=== PATIENT | female | born 1990 | race Caucasian/White ===

== ENCOUNTER 2016-09-02 17:08 | Emergency (ER) | payer MEDICAID ==
[~2016-09-02] VITALS: Ht 162.6 cm; Wt 109.1 kg
[~2016-09-02 17:08] MED LIST: DENIES MEDS
[2016-09-02 17:54] VITALS: Ht 162.6 cm; Wt 109.1 kg
--- NOTE | 2016-09-02 19:34 | ERD ---
ER Documentation Chief Complaint Date/Time DATE: 09/02/16 TIME: 19:32 Chief Complaint heavy vaginal bleeding with clots; lower abdominal pain HPI This is a 26-year-old female who presents to the emergency department today for heavy vaginal bleeding. Patient states that she started her period last night and this morning she had heavy clots and she felt dizzy while in the shower. Patient states that she has sharp pain in her stomach. States that for the last year she has been having heavy vaginal bleeding and is sometimes getting her period twice a month. Denies any fevers or chills. States she has some nausea but no vomiting. Denies being sexually active. ROS All systems reviewed and are negative except as per history of present illness. Medications Home Meds Active Scripts Acetaminophen* (Tylophen*) 500 Mg Capsule, 1 CAP PO Q6H Y for PAIN AND OR ELEVATED TEMP, #30 CAP Prov:VICKIE WRIGHT PA-C 09/02/16 Naproxen* (Naprosyn*) 500 Mg Tablet, 500 MG PO BID Y for PAIN AND/OR INFLAMMATION, #30 TAB Prov:VICKIE WRIGHT PA-C 09/02/16 Docusate Sodium* (Colace*) 100 Mg Capsule, 100 MG PO TID, #60 CAP Prov:VICKIE WRIGHT PA-C 09/02/16 Ferrous Sulfate* (Ferrous Sulfate*) 325 Mg Tabec, 325 MG PO BID for 30 Days, TAB Prov:VICKIE WRIGHT PA-C 09/02/16 Reported Medications [Denies Meds] No Conflict Check 07/18/10 Allergies Allergies: Coded Allergies: No Known Drug Allergy (Verified Allergy, Mild, 07/18/10) PMhx/Soc History of Surgery: No Anesthesia Reaction: No Hx Neurological Disorder: No Hx Respiratory Disorders: No Hx Cardiac Disorders: No Hx Psychiatric Problems: No Hx Miscellaneous Medical Probl: No Hx Alcohol Use: No Hx Substance Use: No Hx Tobacco Use: No Physical Exam Vitals Vital Signs Date Time Temp Pulse Resp B/P Pulse Ox O2 Delivery O2 Flow Rate FiO2 09/02/16 17:54 97.9 73 19 134/70 100 Physical Exam Const: Obese, talkative, no acute distress Head: Atraumatic Eyes: Normal Conjunctiva ENT: Normal External Ears, Nose and Mouth. Neck: Full range of motion..~ No meningismus. Resp: Clear to auscultation bilaterally Cardio: Regular rate and rhythm, no murmurs Abd: Soft, mild suprapubic tenderness non distended. Normal bowel sounds. No right lower quadrant pain. No tenderness at McBurney's. No left lower quadrant pain Skin: No petechiae or rashes Neur: Awake and alert Psych: Normal Mood and Affect Result Diagram: 09/02/16201409/02/162014 Results 24 hrs Laboratory Tests Test 09/02/16 19:45 09/02/16 20:15 Bedside Urine Blood 3+ Bedside Urine Glucose (UA) Negative Bedside Urine Ketones (LAB) Negative Bedside Urine Leukocyte Esterase (L Trace Bedside Urine Nitrite (LAB) Negative Bedside Urine Protein (LAB) Negative Bedside Urine pH (LAB) 6.0 Alanine Aminotransferase (ALT/SGPT) 65IU/L Albumin 4.3g/dl Albumin/Globulin Ratio 1.16 Alkaline Phosphatase 95IU/L Anion Gap 17 Aspartate Amino Transf (AST/SGOT) 60IU/L Basophils # 0.010^3/ul Basophils % 0.4% Blood Urea Nitrogen 7mg/dl Calcium Level 9.1mg/dl Carbon Dioxide Level 26mmol/L Chloride Level 104mmol/L Creatinine 0.61mg/dl Direct Bilirubin 0.00mg/dl Eosinophils # 0.110^3/ul Eosinophils % 0.7% Globulin 3.70g/dl Glucose Level 107mg/dl Hematocrit 32.0% Hemoglobin 10.0g/dl Indirect Bilirubin 0.2mg/dl Lymphocytes # 1.910^3/ul Lymphocytes % 21.2% Mean Corpuscular Hemoglobin 25.4pg Mean Corpuscular Hemoglobin Concent 31.3g/dl Mean Corpuscular Volume 81.2fl Mean Platelet Volume 9.8fl Monocytes # 0.510^3/ul Monocytes % 5.9% Neutrophils # 6.410^3/ul Neutrophils % 71.6% Nucleated Red Blood Cells # 0.010^3/ul Nucleated Red Blood Cells % 0.0/100WBC Platelet Count 34012^3/UL Potassium Level 4.2mmol/L Red Blood Count 3.9410^6/ul Red Cell Distribution Width 15.0% Sodium Level 143mmol/L Total Bilirubin 0.2mg/dl Total Protein 8.0g/dl White Blood Count 9.010^3/ul DIAGNOSTIC IMAGING REPORT Patient: GEM LA : 1990 Age: 26 Sex: F MR #: [id number] DOS: 09/02/16 0000 Ordering MD: VICKIE WRIGHT PA-C Location: [facility] Room/Bed: PROCEDURE: Ultrasound pelvis CLINICAL INDICATION: heavy vaginal bleeding, pain.. TECHNIQUE: Multiple valencia scale and color Doppler images of the pelvis were obtained transabdominally and transvaginally. Images were reviewed PACS workstation COMPARISON: None FINDINGS: The uterus is identified, measuring 8.9 x 5.5 x 6.2 cm. The endometrial canal appears thickened, measuring up to 3.4 cm. There is internal vascularity. The right ovary measures 4.3 x 2.4 x 2.8 cm. The left ovary measures 4.2 x 2.9 x 2.2 cm. The ovaries appear unremarkable in echotexture. There is bilateral vascular flow identified. There is no evidence of free fluid. There is no abnormal adnexal mass. IMPRESSION: 1. Heterogeneous thickened endometrium, 3.3 cm, with internal vascularity. This is suspicious for underlying hyperplasia, polyp, or mass. Direct visualization or hysterosonogram recommended. 2. Unremarkable appearance of the bilateral ovaries. RPTAT: HBST . .Duglas Euceda MD, MD Date Time Electronically viewed and signed by .Duglas Euceda MD, MD on 09/02/2016 21:52 .T/ CC: VICKIE WRIGHT PA-C Procedures/[facility] This a 26-year-old female who presents to the emergency department today for heavy vaginal bleeding that started last night. Patient has been having a history of heavy vaginal bleeding and dysfunctional uterine bleeding. I did obtain laboratory work as well as a UA and ultrasound UA shows trace leukocyte esterase Urine test is negative Laboratory work shows hemoglobin of 10 and hematocrit of 32. Platelets are within normal limits. Electrolytes are within normal limits. Glucose is within normal limits. Liver function is mildly elevated. Ultrasound shows heterogeneous thickened endometrium 3.3 cm with internal vascularity. This is suspicious for underlying hyperplasia, polyp or mass. Direct visualization or his stroke sonogram is recommended. Unremarkable appearance of the bilateral ovaries. There is no abnormal adnexal mass. There is no evidence of free fluid. There is bilateral vascular flow identified. Patient symptoms at this time most consistent with dysfunctional uterine bleeding however patient does have an abnormal ultrasound. I have discussed this with the patient. Patient indicated that her aunts has a history of female cancer however she is unsure which one. At this time low suspicion for ectopic , tubo-ovarian abscess, ovarian torsion.. Patient is not hypotensive. She is hemodynamically stable. There is no indication for transfusion at this time. Patient was instructed she needed to get follow-up with a ASSISTED LIVING ASSISTANT as soon as possible. Patient understood Patient was given a prescription for Naprosyn, Tylenol, iron and Colace At this time the patient is stable for discharge and outpatient management. Patient should follow up with their PCP in the next 1-2 days. They may return to the emergency department sooner for any persistent or worsening of symptoms. Patient understood and agreed with the plan. Discussed the patient with Dr. Mullen and he is in agreement with the plan. Departure Diagnosis: Primary Impression: Vaginal bleeding Condition: VICKIE Ramesh PA-C Sep 02, 2016 19:34
[2016-09-02 19:47] LABS: URINE BLOOD (Dip) POC 3+ (NEGATIVE)
[2016-09-02 20:19] LABS: ADD SCAN DIFF NO
[2016-09-02 20:22] LABS: BASOPHILS % 0.4 % (0.0-2.0); EOSINOPHILS # 0.1 10^3/ul (0.0-0.5); EOSINOPHILS % 0.7 % (0.0-7.0); LYMPHOCYTES # 1.9 10^3/ul (0.8-2.9); LYMPHOCYTES % 21.2 % (15.0-51.0); MEAN CORPUSCULAR HEMOGLOBIN 25.4 pg (29.0-33.0); MEAN CORPUSCULAR HGB CONC 31.3 g/dl (32.0-37.0); MEAN CORPUSCULAR VOLUME 81.2 fl (82.0-101.0); MEAN PLATELET VOLUME 9.8 fl (7.4-10.4); MONOCYTE # 0.5 10^3/ul (0.3-0.9); MONOCYTES % 5.9 % (0.0-11.0); NEUTROPHIL # 6.4 10^3/ul (1.6-7.5); NEUTROPHILS % 71.6 % (39.0-77.0); PLATELET COUNT 403 10^3/UL (140-415); RED BLOOD COUNT 3.94 10^6/ul (4.20-5.40)
[2016-09-02 20:39] LABS: ALBUMIN 4.3 g/dl (3.3-4.9)
[2016-09-02 20:40] LABS: POTASSIUM 4.2 mmol/L (3.5-5.1)
[2016-09-02 20:42] LABS: ALBUMIN/GLOBULIN RATIO 1.16; BILIRUBIN,INDIRECT 0.2 mg/dl (0-1.1); BILIRUBIN,TOTAL 0.2 mg/dl (0.2-1.3); CREATININE 0.61 mg/dl (0.44-1.00)
[2016-09-02 20:43] LABS: CALCIUM 9.1 mg/dl (8.4-10.2)
--- NOTE | 2016-09-02 21:52 | RADRPT ---
PROCEDURE: Ultrasound pelvis CLINICAL INDICATION: heavy vaginal bleeding, pain.. TECHNIQUE: Multiple valencia scale and color Doppler images of the pelvis were obtained transabdominal ly and transvaginally. Images were reviewed PACS workstation COMPARISON: None FINDINGS: The uterus is identified, measuring 8.9 x 5.5 x 6.2 cm. The endometrial canal appears thickened, me asuring up to 3.4 cm. There is internal vascularity. The right ovary measures 4.3 x 2.4 x 2.8 cm. The left ovary measures 4.2 x 2.9 x 2.2 cm. The ovari es appear unremarkable in echotexture. There is bilateral vascular flow identified. There is no evidence of free fluid. There is no abnormal adnexal mass. IMPRESSION: 1. Heterogeneous thickened endometrium, 3.3 cm, with internal vascularity. This is suspicious for underlying hyperplasia, polyp, or mass. Direct visualization or hysterosonogram recommended. 2. Unremarkable appearance of the bilateral ovaries. RPTAT: HBST . .Duglas Euceda MD, MD Date Time Electronically viewed and signed by .Duglas Euceda MD, on 09/02/2016 21:52 .T/
[2016-09-02 22:10] VITALS: BP 128/68; PULSE 74; RESP 16; TEMP 98.4
[2016-09-02] MEDS ORDERED: DOCU-144 PO (22:15)
[2016-09-02] MEDS ORDERED: FER325 PO (22:15)
[2016-09-02] MEDS ORDERED: NAPR-260 PO (22:16)
[2016-09-02] MEDS ORDERED: ACET500C5 PO (22:16)
== END 2016-09-02 22:14 | disposition home or self-care (01) ==
LOC: FTE 17:08
DX: N93.9 Abnormal uterine and vaginal bleeding, unspecified (principal); R10.2 Pelvic and perineal pain
CPT/HCPCS: 76856; 80053; 81003; 85025; Z7502

== ENCOUNTER 2017-01-25 21:37 | Emergency (ER) | payer MEDICAID, OTHER ==
[~2017-01-25] VITALS: Ht 162.6 cm; Wt 113.0 kg
[~2017-01-25 21:37] MED LIST changes: +ACET500C5 PO; +DOCU-144 PO; +FER325 PO; +NAPR-260 PO
[2017-01-25 21:49] VITALS: Ht 162.6 cm; Wt 113.0 kg
[2017-01-25] MEDS ORDERED: LIDOCAINE 2%/EPI MPF (SDV) 20 ML VIAL INJ ONE (23:30)
[2017-01-25] MEDS ORDERED: HYDROCODONE/APAP (5/325) TAB PO ONE (23:30)
[2017-01-26] MEDS ORDERED: HYDR-906 PO (00:26)
[2017-01-26] MEDS ORDERED: DIPHTH/TET/ACEL PERTUSS (ADULT) 0.5 ML VIAL IM* ONE (00:30)
--- NOTE | 2017-01-26 00:38 | ERA ---
ER Documentation Chief Complaint Date/Time DATE: 01/26/17 TIME: 00:35 Chief Complaint right leg laceration HPI 26-year-old female presenting 12 hours after right leg laceration from glass. Clean laceration. Denies any possibility of foreign bodies. Tetanus status is unknown. Denies numbness, tingling, decreased/loss of motion, or injury to other areas. Nursing notes have been reviewed and are consistent with history given. ROS All systems reviewed and are negative except as per history of present illness. Medications Home Meds Active Scripts Hydrocodone/Acetaminophen (Conway 5-325 Tablet) 1 Each Tablet, 1 TAB PO Q6H Y for PAIN, #7 TAB Prov:VEENA DORADO PA-C 01/26/17 Acetaminophen* (Tylophen*) 500 Mg Capsule, 1 CAP PO Q6H Y for PAIN AND OR ELEVATED TEMP, #30 CAP Prov:VICKIE WRIGHT PA-C 09/02/16 Naproxen* (Naprosyn*) 500 Mg Tablet, 500 MG PO BID Y for PAIN AND/OR INFLAMMATION, #30 TAB Prov:VICKIE WRIGHT PA-C 09/02/16 Docusate Sodium* (Colace*) 100 Mg Capsule, 100 MG PO TID, #60 CAP Prov:VICKIE WRIGHT PA-C 09/02/16 Ferrous Sulfate* (Ferrous Sulfate*) 325 Mg Tabec, 325 MG PO BID for 30 Days, TAB Prov:VICKIE WRIGHT PA-C 09/02/16 Reported Medications [Denies Meds] No Conflict Check 07/18/10 Allergies Allergies: Coded Allergies: No Known Drug Allergy (Verified Allergy, Mild, 07/18/10) PMhx/Soc History of Surgery: No Anesthesia Reaction: No Hx Neurological Disorder: No Hx Respiratory Disorders: No Hx Cardiac Disorders: No Hx Psychiatric Problems: No Hx Miscellaneous Medical Probl: No Hx Alcohol Use: No Hx Substance Use: No Hx Tobacco Use: No Smoking Status: Never smoker Physical Exam Vitals Vital Signs Date Time Temp Pulse Resp B/P Pulse Ox O2 Delivery O2 Flow Rate FiO2 01/25/17 21:49 99.5 77 18 159/87 97 Physical Exam Const: Obese 26-year-old female no acute distress Skin: [place]-shaped clean laceration that is on the medial side of the right knee and 7 cm in diameter. Probation revealed no foreign body.. No petechiae or rashes. No ulcer, induration, jaundice. Good turgor. Head: Normocephalic, Atraumatic. Eyes: Non-injected; No scleral erythema, discharge or foreign body. EOMI and JEANIE bilaterally. Ears: Normal External Ears, EACs clear, TM normal bilaterally without erythema. Nose: Normal nose without discharge, septal deviation, or sinus tenderness. Oral: No oral edema visualized. Mucous membranes moist and pink. Neck: No cervical lymphadenopathy, masses or goiter palpated. Trachea midline. Supple ~ No meningismus. Pulm: Good air movement in upper and lower respiratory tracts. No dyspnea, stridor, tripoding or drooling. Clear to auscultation bilaterally. Cardio: Regular rate and rhythm; No murmurs, gallops or rubs auscultated. No JVD grossly observed. Radial and posterior tibial pulses 2+ bilaterally. No cyanosis. Capillary refill less than 2 seconds. Abd: Soft, non tender, non distended. No guarding, masses. Normal bowel sounds. No McBurney's point tenderness. MS: Normal motor strength, normal tone with gross examination. Back: No midline, flank or CVA tenderness. Ext: No cyanosis, edema or palpable cord. Neur: Awake, alert and oriented x3. Neurovascularly intact bilaterally. Psych: Normal Mood and Affect. Results 24 hrs Current Medications Medications (Trade) Dose Ordered Sig/Sofiya Route PRN Reason Start Time Stop Time Status Last Admin Dose Admin Acetaminophen/ Hydrocodone Bitart (Conway (5/325)) 1 tab ONCE ONCE PO 01/25/17 23:30 01/25/17 23:31 DC 01/25/17 23:25 Lidocaine/ Epinephrine (Xylocaine 2%/ Epi Mpf(Sdv)) 20 ml ONCE ONCE INJ 01/25/17 23:30 01/25/17 23:31 DC Diphtheria/ Tetanus/Acell Pertussis (Adacel) 0.5 ml ONCE ONCE IM* 01/26/17 00:30 01/26/17 00:31 DC 01/26/17 00:32 Procedures/MDM Patient presents with a 7 cm diameter crescent laceration on the medial right knee. Tetanus status is unknown. Tetanus shot was given. ED treatment consisted of Conway 5/325 p.o. with adequate relief. The laceration was irrigated with normal saline and cleaned by the nursing staff. Iodine was used to sterilize the affected area. 9 mL of lidocaine with epi was used adequately anesthetized the area. There were no foreign bodies found with exploration. The laceration was then repaired with 3 simple 5-0 chromic gut sutures and 9 simple 4-0 nylon sutures. The wound was well approximated and there was adequate eversion. There were no complications during the proceeder. Neurovascular status was reevaluated post procedure, and remained unchanged. They were then educated on wound care and warning signs of complications, and instructed to follow up in 2 days for a wound check. They verbally stated that they understand the plan of management. I have a very low suspicion at this time for infection, compartment syndrome, fracture or neurovascular compromise. The area was then washed and bacitracin applied by the nursing staff. Sterile gauze was used to cover the area. The patient is otherwise healthy and did not sustain a dirty or deep wound; thus , at this time antibiotics are not necessary. The patient will however be discharged with Conway 5/325 mg p.o. 7 tabs. Patient will be discharged home with instructions and return precautions for infection. Departure Diagnosis: Primary Impression: Laceration Condition: Stable Patient Instructions: Laceration, All Referrals: IRISH DENG (PCP) Additional Instructions: You were seen in the emergency department for your laceration which has been closed. Your wound has been cleaned and covered with antibiotic ointment. Please keep this dressing on for 12 hours. After 12 hours take the dressing down and gently clean the wound with ONLY soap and water. If you were given antibiotics, complete the course of treatment as prescribed. Look for signs of infection such as increasing redness, swelling, pain or drainage of pus (yellow/ green fluid). If you see signs of infection, please return to the emergency department immediately. If there are no signs of infection, cover your wound with antibiotic ointment and reapply a dressing. You will form a scar. To keep from scarring too dark, keep your wound covered and out of the sun for the next 6-12 months. Consider using OTC anti-scar creams such as Mederma. Return to the ED for a wound check in 2 days and again for suture removal in 7-10 days. VEENA DORADO PA-C Jan 26, 2017 00:38
== END 2017-01-26 01:01 | disposition home or self-care (01) ==
LOC: FTE 21:37
DX: S81.011A Laceration without foreign body, right knee, initial encounter (principal); W25.XXXA Contact with sharp glass, initial encounter; Y92.9 Unspecified place or not applicable; Z23 Encounter for immunization
CPT/HCPCS: 12002; 90471; 90715; Z7502; Z7610